=== PATIENT | female | born 2000 | race Two or more races ===

== ENCOUNTER 2022-07-21 19:07 | Emergency (ER) | payer OTHER ==
[~2022-07-21] VITALS: Ht 160 cm; Wt 86.2 kg
== END 2022-07-21 22:08 | disposition home or self-care (01) ==
LOC: ER 19:07
DX: N39.0 Urinary tract infection, site not specified (principal)

== ENCOUNTER 2022-08-04 19:35 | Emergency (ER) | payer OTHER ==
[~2022-08-04] VITALS: Ht 160 cm; Wt 86.2 kg
== END 2022-08-05 01:09 | disposition home or self-care (01) ==
LOC: ER 19:35
DX: N30.80 Other cystitis without hematuria (principal); R10.2 Pelvic and perineal pain